=== PATIENT | male | born 1965 | race African-American/Black ===

== ENCOUNTER 2022-12-22 18:36 | Emergency (ER) | payer MEDICAID ==
[~2022-12-22] VITALS: Ht 175.3 cm; Wt 100.0 kg
[2022-12-22 18:40] VITALS: BP 161/95; O2SAT 97
[2022-12-22 22:49] VITALS: PULSE 70; RESP 18; TEMP 98.7
== END 2022-12-22 22:51 | disposition home or self-care (01) ==
LOC: ER 18:36
DX: D17.1 Benign lipomatous neoplasm of skin and subcutaneous tissue of trunk (principal); J43.9 Emphysema, unspecified; I10 Essential (primary) hypertension; I72.9 Aneurysm of unspecified site; F19.90 Other psychoactive substance use, unspecified, uncomplicated; Z91.018 Allergy to other foods
CPT/HCPCS: 71250; 99284

== ENCOUNTER 2023-10-08 07:37 | Emergency (ER) | payer MEDICAID ==
[~2023-10-08] VITALS: Ht 170.2 cm; Wt 88.1 kg
[2023-10-08 07:38] VITALS: O2SAT 96
[2023-10-08 07:49] VITALS: BP 161/92; PULSE 55; TEMP 98.6; O2SAT 100
== END 2023-10-08 08:38 ==
LOC: ER 07:48
DX: R20.0 Anesthesia of skin (principal); I10 Essential (primary) hypertension; Z98.890 Other specified postprocedural states
CPT/HCPCS: 93005; 99283

== ENCOUNTER 2023-11-21 12:01 | Emergency (ER) | payer MEDICAID, OTHER ==
[~2023-11-21] VITALS: Ht 182.9 cm; Wt 82.0 kg
[2023-11-21 12:05] VITALS: O2SAT 98
[2023-11-21] MEDS: TETANUS, DIPHTHERIA, PERTUSSIS VAC/PF 0.5ML (>10YR OLD) IM ONE (12:56)
[2023-11-21 13:02] VITALS: BP 166/99; PULSE 79; RESP 16; TEMP 36.83628; O2SAT 97
== END 2023-11-21 13:08 ==
LOC: ER 12:59
DX: S50.811A Abrasion of right forearm, initial encounter (principal); I10 Essential (primary) hypertension; X58.XXXA Exposure to other specified factors, initial encounter; Y93.89 Activity, other specified; Y92.89 Other specified places as the place of occurrence of the external cause; Y99.8 Other external cause status
CPT/HCPCS: 90715; 90471; 99283; Z7610